=== PATIENT | male | born 1985 | race Caucasian/White ===

== ENCOUNTER 2019-01-21 07:35 | Emergency (ER) | payer SELFPAY ==
--- NOTE | 2019-01-21 08:05 | EDM.PDOC ---
ED HPI GENERAL MEDICAL PROBLEM - General Chief Complaint: Genitourinary Problem Stated Complaint: PAIN IN GROIN AREA Time Seen by Provider: 01/21/19 07:52 - History of Present Illness INITIAL COMMENTS - FREE TEXT/NARRATIVE: HISTORY AND PHYSICAL: History of present illness: Patient 33-year-old male presents with a concern of intermittent left testicular pain over the last month he states slightly increased over last several days he has no history of sexually transmitted diseases nor concern of such he is monogamous he's had no urethral discharge discomfort with urination penile lesions or other complaints. No trauma and has not noticed any masses or other findings. Review of systems: As per history of present illness and below otherwise all systems reviewed and negative. Past medical history: As per history of present illness and as reviewed below otherwise noncontributory. Surgical history: As per history of present illness and as reviewed below otherwise noncontributory. Social history: No reported history of drug or alcohol abuse. Family history: As per history of present illness and as reviewed below otherwise noncontributory. Physical exam: HEENT: Atraumatic, normocephalic, pupils reactive, negative for conjunctival pallor or scleral icterus, mucous membranes moist, throat clear, neck supple, nontender, trachea midline. Lungs: Clear to auscultation, breath sounds equal bilaterally, chest nontender. Heart: S1S2, regular, negative for clicks, rubs, or JVD. Abdomen: Soft, nondistended, nontender. Negative for masses or hepatosplenomegaly. Negative for costovertebral tenderness. Pelvis: Stable nontender. Genitourinary: No masses appreciated no hernias some mild tenderness in the left epididymal region this was not particularly warm there is no areas of fluctuance or significant induration. Rectal: Deferred. Extremities: Atraumatic, negative for cords or calf pain. Neurovascular unremarkable. Neuro: Awake, alert, oriented. Cranial nerves II through XII unremarkable. Cerebellum unremarkable. Motor and sensory unremarkable throughout. Exam nonfocal. Diagnostics: UA urine for GC chlamydia testicular ultrasound Therapeutics: None Impression: #1 testicular pain Definitive disposition and diagnosis as appropriate pending reevaluation and review of above. left testicle Pain Score (Numeric/FACES): 9 - Related Data Allergies Allergy/AdvReac Type Severity Reaction Status Date / Time No Known Allergies Allergy Verified 01/21/19 07:40 Home Meds: Home Meds . [No Known Home Meds] 01/21/19 [History] Past Medical History - Past Health History Medical/Surgical History: Denies Medical/Surgical History Social & Family History - Family History Family Medical History: Noncontributory - Tobacco Use Smoking Status *Q: Never Smoker - Recreational Drug Use Recreational Drug Use: No ED ROS GENERAL - Review of Systems Review Of Systems: ROS reveals no pertinent complaints other than HPI. ED EXAM, GENERAL - Physical Exam Exam: See Below (See dictation) Course - Vital Signs Last Recorded V/S: Last Vital Signs Temp 36.0 C 01/21/19 07:41 Pulse 83 01/21/19 07:41 Resp 18 01/21/19 07:41 BP 135/76 01/21/19 07:41 Pulse Ox 100 01/21/19 07:41 - Orders/Labs/Meds Orders: Active Orders 24 hr Category Date Time Status CHLAMYDIA AND GONORRHEA BY [facility] Stat Lab 01/21/19 08:27 Received Labs: Laboratory Tests 01/21/19 Range/Units 08:27 Urine Color YELLOW Urine Appearance CLEAR Urine pH 6.0 (5.0-8.0) Ur Specific [place] >= 1.030 (1.001-1.035) Urine Protein NEGATIVE (NEGATIVE) mg/dL Urine Glucose (UA) NEGATIVE (NEGATIVE) mg/dL Urine Ketones NEGATIVE (NEGATIVE) mg/dL Urine Occult Blood NEGATIVE (NEGATIVE) Urine Nitrite NEGATIVE (NEGATIVE) Urine Bilirubin NEGATIVE (NEGATIVE) Urine Urobilinogen 0.2 (<2.0) EU/dL Ur Leukocyte Esterase NEGATIVE (NEGATIVE) Departure - Departure Time of Disposition: 09:13 Disposition: Home, Self-Care 01 Condition: Good Clinical Impression: Testicular pain - Discharge Information Forms: ED Department Discharge Additional Instructions: The following information is given to patients seen in the emergency department who are being discharged to home. This information is to outline your options for follow-up care. We provide all patients seen in our emergency department with a follow-up referral. The need for follow-up, as well as the timing and circumstances, are variable depending upon the specifics of your emergency department visit. If you don't have a primary care physician on staff, we will provide you with a referral. We always advise you to contact your personal physician following an emergency department visit to inform them of the circumstance of the visit and for follow-up with them and/or the need for any referrals to a consulting specialist. The emergency department will also refer you to a specialist when appropriate. This referral assures that you have the opportunity for followup care with a specialist. All of these measure are taken in an effort to provide you with optimal care, which includes your followup. Under all circumstances we always encourage you to contact your private physician who remains a resource for coordinating your care. When calling for followup care, please make the office aware that this follow-up is from your recent emergency room visit. If for any reason you are refused follow-up, please contact the [facility] emergency department at and asked to speak to the emergency department charge nurse. [facility] - Urology [address] [place] [id number] Athletic supporter as directed follow-up urology clinic above doxycycline as prescribed and return as needed as discussed - My Orders Last 24 Hours: My Active Orders 01/21/19 08:27 CHLAMYDIA AND GONORRHEA BY [facility] Stat - Assessment/Plan Last 24 Hours: My Active Orders 01/21/19 08:27 CHLAMYDIA AND GONORRHEA BY [facility] Stat
--- NOTE | 2019-01-21 08:38 | US ---
EXAMINATION: Scrotal duplex ultrasound HISTORY: Pain COMPARISON: None TECHNIQUE: Grayscale, color Doppler, and spectral Doppler imaging obtained. FINDINGS: Both the left and right testicles are normal in size, contour, and echogenicity. Normal color and spectral Doppler flow bilaterally. No masses noted. The epididymides appear normal. No significant hydrocele or varicocele. No scrotal wall thickening. IMPRESSION: Grossly unremarkable scrotal duplex ultrasound.
== END 2019-01-21 09:40 | disposition home or self-care (01) ==
LOC: MW.ED 07:35 → EDSEX 07:35 → MW.ED 09:40
DX: N50.812 Left testicular pain (principal)
CPT/HCPCS: 76870; 76870-26; 81003; 87491; 87591; 93976; 93976-26; 99283; 99284-25